=== PATIENT | male | born 1945 | race Caucasian/White ===

== ENCOUNTER 2017-09-11 02:04 | Emergency (ER) | payer OTHER ==
[~2017-09-11] VITALS: Ht 167.6 cm; Wt 84.9 kg
[~2017-09-11 02:04] MED LIST: ASCA500 PO; ASPEC81 PO; FAMO20TA11 PO; GLUCTAB7; HYDR-3419 PO; LYSINE; MULT-506 PO; PHEN-775 PO; PRSUNK PO; VITA100C4 PO; ZYRUNK
[2017-09-11 02:10] VITALS: TEMP 36.3; Ht 167.6 cm; Wt 84.9 kg
[2017-09-11] MEDS ORDERED: ATOR10TA82 PO (02:53)
[2017-09-11] MEDS ORDERED: LISI-729 PO (02:54)
[2017-09-11 02:55] LABS: BASO % 0.3 %; BASO ABS # 0.02 K/uL (0-0.2); HEMATOCRIT 42.6 % (42-52); HEMOGLOBIN 14.7 g/dL (14.0-18.0); IG# 0.02 K/uL (0.00-0.02); LYMPH % 27.4 %; LYMPH ABS # 1.81 K/uL (1.2-3.4); MEAN CELL VOLUME 91.8 fL (80-100); MEAN CORPUSCULAR HEMOGLOBIN 31.7 pg (25-34); MEAN CORPUSCULAR HGB CONC 34.5 g/dl (32-36); MEAN PLATELET VOLUME 8.8 fL (7.4-10.4); MONO ABS # 0.73 K/uL (0.11-0.59); NEUT ABS # 3.83 K/uL (1.4-6.5); PLATELET COUNT 257 K/uL (130-400); RED CELL DISTRIBUTION WIDTH SD 46.8 fL (36.4-46.3); WHITE BLOOD COUNT 6.61 K/uL (4.8-10.8)
[2017-09-11] MEDS ORDERED: TAMS0.4C38 PO (02:55)
[2017-09-11] MEDS ORDERED: OMEG10007 PO (02:56)
[2017-09-11] MEDS ORDERED: tumeric PO (02:57)
[2017-09-11] MEDS ORDERED: ALBUT/IPRATROP 3MG/0.5MG NEB 3 ML VIAL INH ONE (03:00)
[2017-09-11 03:04] LABS: ISTAT CREATININE 0.9 mg/dl (0.6-1.3); ISTAT IONIZED CALCIUM 1.18 mmol/l (1.12-1.32); ISTAT POTASSIUM 3.9 mEq/L (3.3-5.0)
[2017-09-11 03:14] LABS: CALCIUM 8.7 mg/dl (8.5-10.1)
--- NOTE | 2017-09-11 03:34 | EMERGENCY ROOM VISIT NOTE ---
History Report prepared by Leola: Eleanor Sanches Under the Supervision of: Dr. Ramon Ewing M.D. First contact with patient: 02:21 Chief Complaint: RESPIRATORY PROBLEMS Stated Complaint: TROUBLE BREATHING History of Present Illness The patient is a 71 year old male who presents to the Emergency Room with complaints of worsening respiratory problems starting a few weeks ago. The patient states that he feels like he has to yawn, but cannot get air. He states that if he distracts himself and calms down, it goes away. He states that he has had it once before years ago. He reports that he tried to get an appointment with his PCP yesterday, but could not so he went to Urgent Care. He reports that they did x-rays and an EKG that they said were negative, but would need to wait on radiology to read it. He reports that they told him they would call, but they never did. He states that he got on [facility] this evening and a report was there. The patient states that he assumed that it was in his head and tried to shake it off. He states that tonight it was worse when he would lay back. He reports that he could not catch his breath. He states that he tried to go back to sleep, but couldn't. The patient complains of nasal congestion and chest pain from breathing heavily. He notes that he has been using Flonase with some relief. The patient denies recent travel, history of blood clots, family history of blood clots, cardiac history, headache, neck pain , loss of consciousness, trouble walking, abdominal pain, loss of appetite, recent weight loss, night sweats, heart palpitations, easily bruising, rashes, and exposure to chemicals. Source of History: patient Onset: a few weeks ago Position: other (global ) Quality: other (respiratory problem) Timing: worsening Associated Symptoms: + chest pain, No LOC, No headache, No neck pain, No abdominal pain, No rash Note: The patient complains of nasal congestion. The patient denies trouble walking, loss of appetite, recent weight loss, night sweats, heart palpitations, easily bruising, and exposure to chemicals. Review of Systems See HPI for pertinent positives & negatives. A total of 10 systems reviewed and were otherwise negative. Past Medical & Surgical Medical Problems: (1) Acoustic neuroma (2) Asthma (3) HTN (hypertension) (4) Kidney stones (5) Seasonal allergies Surgical Problems: (1) H/O vasectomy Family History Diabetes mellitus FHx: cancer FHx: gallbladder disease Kidney stone Social History Smoking Status: Never Smoker Smokeless Tobacco Use: No Alcohol Use: occasionally Marital Status: Housing Status: lives with significant other Occupation Status: retired Current/Historical Medications Scheduled Aspirin Enteric Coated (Ecotrin Or Generic *), 81 MG PO DAILY Atorvastatin (Lipitor), 10 MG PO DAILY Doxycycline Hyclate (Vibramycin), 100 MG PO BID Famotidine (Pepcid), 20 MG PO DAILY Finasteride (Proscar Unknown Dose), 5 MG PO DAILY Fish Oil ([place]-3), 1 CAP PO DAILY Vwedfyttfvt-Ojvxbotkssh-Akn C- (Glucosamine Chondroitin), BID Lisinopril (Prinivil), 2.5 MG PO DAILY Multivitamin (Multivitamin), 1 TAB PO DAILY Prednisone (Prednisone), 0 PO DAILY Tamsulosin Hcl (Flomax), 0.4 MG PO DAILY [tumeric], 1 DOSE PO DAILY Miscellaneous Medications [Lysine] Allergies Coded Allergies: Cat Dander (Verified Allergy, Unknown, resp. difficulty, 09/11/17) Ragweed (Verified Allergy, Unknown, watery eyes, 09/11/17) Sulfa Drugs (Verified Adverse Reaction, Unknown, "CANNOT TAKE WITH CURRENT MEDS", 02/18/13) Uncoded Allergies: ototoxic medications (Adverse Reaction, Intermediate, tinnitis, 02/18/13) Physical Exam Vital Signs Date Time Temp Pulse Resp B/P (MAP) Pulse Ox O2 Delivery O2 Flow Rate FiO2 09/11/17 05:32 89 17 110/79 97 09/11/17 04:17 83 16 95 Room Air 21 09/11/17 04:03 69 20 137/90 96 Room Air 09/11/17 02:10 36.3 71 20 150/93 92 Room Air Physical Exam GENERAL: Patient is uncomfortable appearing and in mild distress. EYES: No scleral icterus, unremarkable pupils. ENT: Mucous membranes moist, no nasal congestion. NECK: No masses appreciated, no meningismus, trachea is midline. RESPIRATORY: Mild dyspneic with periodic pursed lip breathing when talking. Prolonged expiratory time. Crackles in the left lower lobe. Faint expiratory wheezes. Equal bilaterally. CARDIOVASCULAR: Regular rate and rhythm. No murmurs, rubs, gallops appreciated. GASTROINTESTINAL: Abdomen soft, nontender, no peritonitis. Bowel sounds positive. No masses appreciated. BACK: No midline tenderness, no CVA tenderness EXTREMITIES: Normal motion all extremities, no cyanosis, no edema. NEUROLOGIC: Alert and oriented, no acute motor or sensory deficits, no focal weakness, cranial nerves grossly intact. SKIN: No rash, no jaundice, no diaphoresis. Medical Decision & Procedures ER Provider Diagnostic Interpretation: Stat Rad Radiology results and stated below per my review and radiologist interpretation: CTA CHEST: No evidence of PE. Minimal ground-glass subsegmental posterior costophrenic margins. No segmental consolidation. No pleural effusion or pneumothorax. No adenopathy. Heart size is normal. No pericardial effusion. Aorta is unremarkable. Radiologist: Flaco Simon MD Laboratory Results 09/11/17 02:46 Red Blood Count 4.64, Mean Corpuscular Volume 91.8, Mean Corpuscular Hemoglobin 31.7, Mean Corpuscular Hemoglobin Concent 34.5, Mean Platelet Volume 8.8, Neutrophils (%) (Auto) 58.0, Lymphocytes (%) (Auto) 27.4, Monocytes (%) (Auto) 11.0, Eosinophils (%) (Auto) 3.0, Basophils (%) (Auto) 0.3, Neutrophils # (Auto ) 3.83, Lymphocytes # (Auto) 1.81, Monocytes # (Auto) 0.73, Eosinophils # (Auto ) 0.20, Basophils # (Auto) 0.02 09/11/17 02:46 Test 09/11/17 02:46 09/11/17 02:51 White Blood Count 6.61 K/uL (4.8-10.8) Red Blood Count 4.64 M/uL (4.7-6.1) Hemoglobin 14.7 g/dL (14.0-18.0) Hematocrit 42.6 % (42-52) Mean Corpuscular Volume 91.8 fL (80-100) Mean Corpuscular Hemoglobin 31.7 pg (25-34) Mean Corpuscular Hemoglobin Concent 34.5 g/dl (32-36) Platelet Count 257 K/uL (130-400) Mean Platelet Volume 8.8 fL (7.4-10.4) Neutrophils (%) (Auto) 58.0 % Lymphocytes (%) (Auto) 27.4 % Monocytes (%) (Auto) 11.0 % Eosinophils (%) (Auto) 3.0 % Basophils (%) (Auto) 0.3 % Neutrophils # (Auto) 3.83 K/uL (1.4-6.5) Lymphocytes # (Auto) 1.81 K/uL (1.2-3.4) Monocytes # (Auto) 0.73 K/uL (0.11-0.59) Eosinophils # (Auto) 0.20 K/uL (0-0.5) Basophils # (Auto) 0.02 K/uL (0-0.2) RDW Standard Deviation 46.8 fL (36.4-46.3) RDW Coefficient of Variation 14.0 % (11.5-14.5) Immature Granulocyte % (Auto) 0.3 % Immature Granulocyte # (Auto) 0.02 K/uL (0.00-0.02) Est Creatinine Clear Calc Drug Dose 67.2 ml/min Estimated GFR () 86.2 Estimated GFR (Non- 74.3 BUN/Creatinine Ratio 19.5 (10-20) Calcium Level 8.7 mg/dl (8.5-10.1) Chemistry Specimen Hemolysis Bedside Hemoglobin 14.6 g/dl (14.0-18.0) Bedside Hematocrit 43 % (42-52) Bedside Sodium 143 mEq/L (135-144) Bedside Potassium 3.9 mEq/L (3.3-5.0) Bedside Chloride 106 mEq/L (101-112) Bedside Total CO2 27 mEq/l (24-31) Anion Gap 15.0 mmol/L (16-25) Bedside Blood Urea Nitrogen 21 mg/dl (7-18) Bedside Creatinine 0.9 mg/dl (0.6-1.3) Bedside Glucose (other) 101 mg/dl (70-99) Bedside Ionized Calcium (Jacy) 1.18 mmol/l (1.12-1.32) Laboratory results as reviewed by me. Medications Administered Medications (Trade) Dose Ordered Sig/Hammad Route Start Time Stop Time Status Last Admin Dose Admin Albuterol/ Ipratropium (Duoneb) 12 ml ONE ONCE INH 09/11/17 03:00 09/11/17 03:01 DC 09/11/17 03:00 12 ML Dexamethasone Sodium Phosphate (Dexamethasone Inj Pf) 10 mg NOW ONCE IV 09/11/17 05:00 09/11/17 05:01 DC 09/11/17 05:00 10 MG Albuterol (Ventolin Hfa Inhaler) 2 puffs NOW ONCE INH 09/11/17 05:15 09/11/17 05:16 DC 09/11/17 05:28 2 PUFFS ED Course 0223: The patient was evaluated in room B3B. A complete history and physical exam was performed. 0300: Ordered Duoneb 12 ml INH. 0355: I reevaluated the patient and he just got back from CT. 0459: Reevaluated the patient and he is feeling much better. Discussed results and discharge instructions: He verbalized understanding and agreement. He will follow up with his PCP and set up an appointment with Pulmonology. The patient is ready for discharge. 0500: Ordered Dexamethasone Sodium Phosphate 10 mg IV. 0515: Ordered Albuterol 2 puffs INH. Medical Decision Differential: Infectious, Reactive Airway Disease, Pneumonia, Pneumothorax, COPD , CHF, ACS, Pulmonary Embolism, MSK, GI, Dissection, amongst other etiologies entertained. 71 yr old male arrives for evaluation of feeling SHOB. This has been worsening , is position and seems to have pleuritic component. Already with CXR showing some hyperinflated lungs. He has crackles throughout LLL thus felt with no findings on CXR and mild hypoxia on arrival (92%) we would just go ahead with CT Chest and rule out PE, pna, effusion, mass, etc. Labs look OK. Bilateral haziness of non-specific etiology but may be infectious. He is not septic and after neb and steroids breathing improved and sats looking good. No evidence of need for admission. I suspect this is COPD/asthma and may be brought on by allergens. Will likely need pulm evaluation given no previous diagnosis, however for now will start on steroids and abx. Doxy seems reasonable and discussed risks of it. Stable and breathing comfortably. Home with inhaler as well. Medication Reconcilliation Current Medication List: was personally reviewed by me Blood Pressure Screening Patient's blood pressure: Elevated blood pressure Blood pressure disposition: Elevated BP felt to be situational Impression Primary Impression: Acute exacerbation of COPD with asthma Scribe Attestation The scribe's documentation has been prepared under my direction and personally reviewed by me in its entirety. I confirm that the note above accurately reflects all work, treatment, procedures, and medical decision making performed by me. Departure Information Dispostion Home / Self-Care Prescriptions Doxycycline Hyclate (VIBRAMYCIN) 100 Mg Cap 100 MG PO BID for 10 Days, #20 CAP Prov: Ramon Ewing M.D. 09/11/17 Prednisone (Prednisone) 20 Mg Tab 0 PO DAILY, #14 TAB 3 TABS DAILY FOR 2 DAYS, THEN 2 TABS DAILY FOR 2 DAYS, THEN 1 TAB DAILY FOR 2 DAYS, THEN 1/2 TAB DAILY FOR 2 DAYS. Prov: Ramon Ewing M.D. 09/11/17 Referrals Chris Francis III, M.D. (PCP) Forms HOME CARE DOCUMENTATION FORM, IMPORTANT VISIT INFORMATION, WORK / SCHOOL INSTRUCTIONS Patient Instructions My [facility] Additional Instructions Please follow up with PCP and discuss Pulmonology evaluation. Return if worsening shortness of breath, fevers, chest pain, passing out or other concerns. Rest and avoid allergens over the next day or so before returning to normal activity as tolerated.
[2017-09-11] MEDS ORDERED: OPTIRAY 320 IV PRN (04:15)
[2017-09-11 04:17] VITALS: PULSE 83; O2SAT 95
[2017-09-11] MEDS ORDERED: DEXAMETHASONE **PF** INJ 10 MG/ML VIAL IV ONE (05:00)
[2017-09-11] MEDS ORDERED: DOXY100C PO (05:11)
[2017-09-11] MEDS ORDERED: PRED20TA PO (05:11)
[2017-09-11] MEDS ORDERED: ALBUTEROL HFA 8 GM INHALER INH ONE (05:15)
[2017-09-11 05:32] VITALS: BP 110/79; PULSE 89; O2SAT 97
--- NOTE | 2017-09-11 06:57 | DIAGNOSTIC IMAGING REPORT ---
(CHEST FOR PE) ANGIO WITH CT DOSE: 431.19 mGy.cm HISTORY: 71 years-old Male with presents with worsening chest pain and acute shortness of breath. TECHNIQUE: Multiple CTA images of the chest were obtained after the intravenous administration of 93 ml Optiray 320. Coronal and sagittal MIPS were obtained from the axial data set and were submitted for review. A dose lowering technique was utilized adhering to the principles of ALARA. COMPARISON: None available FINDINGS: CTA: The heart is within the upper limits of normal in size without pericardial effusion. No significant coronary arterial calcifications are seen. The thoracic aorta is normal in both course and caliber without aneurysm or dissection. The imaged great vessels appear to be patent. The pulmonary arterial tree is opacified to level of the proximal subsegmental branches and demonstrates no focal filling defects to suggest pulmonary thromboembolic disease. CT CHEST: 9 mm low attenuating lesion of the inferior right thyroid. No pathologic adenopathy of the chest by CT size criteria. There is no pleural effusion or pneumothorax. Subsegmental dependent bibasilar groundglass opacities suggest atelectasis. There are no suspicious pulmonary nodules or masses identified. Central airways appear patent. No acute process of the imaged upper abdomen. Soft tissues are unremarkable. Bones appear intact. Mild multilevel endplate spurring and intervertebral disc space narrowing about the spine. IMPRESSION: No acute intrathoracic abnormality identified, specifically no acute aortic pathology or evidence of pulmonary thromboembolic disease. The above report was generated using voice recognition software. It may contain grammatical, syntax or spelling errors. Electronically signed by: Brayan Oakes M.D. 09/11/2017 6:55 AM Dictated Date/Time: 09/11/2017 6:51 AM
== END 2017-09-11 05:33 | disposition home or self-care (01) ==
LOC: C.EDB 02:05
DX: J44.1 Chronic obstructive pulmonary disease with (acute) exacerbation (principal); I10 Essential (primary) hypertension; Z87.442 Personal history of urinary calculi; Z98.52 Vasectomy status; Z83.3 Family history of diabetes mellitus; Z80.9 Family history of malignant neoplasm, unspecified; Z84.1 Family history of disorders of kidney and ureter; Z83.79 Family history of other diseases of the digestive system; Z79.82 Long term (current) use of aspirin; Z79.899 Other long term (current) drug therapy; Z88.2 Allergy status to sulfonamides; Z88.8 Allergy status to other drugs, medicaments and biological substances; Z91.048 Other nonmedicinal substance allergy status